=== PATIENT | female | born 1995 | race Caucasian/White ===

== ENCOUNTER 2016-08-29 07:50 | Observation (INO) | payer BC, MEDICAID ==
[2014-08-23 09:06] VITALS: O2SAT 98
[2016-08-29 08:34] VITALS: BP 114/76; PULSE 112; RESP 18; TEMP 98.2
== END 2016-08-29 12:00 | disposition home or self-care (01) ==
LOC: OB 07:50
PROVIDERS: ADMIT Emergency Medicine; ATTEND Emergency Medicine
DX: O47.1 False labor at or after 37 completed weeks of gestation (principal); Z3A.39 39 weeks gestation of pregnancy
CPT/HCPCS: 59025

== ENCOUNTER 2016-09-01 21:15 | Inpatient (IN) | payer BC, MEDICAID ==
[2016-09-01] MEDS ORDERED: OXYTOCIN 10000 MU/ML SOL IM PRN (21:44)
[2016-09-01] MEDS ORDERED: METHYLERGONOVINE MALEATE 0.2 MG/ML SOL IM PRN (21:44)
[2016-09-01] MEDS ORDERED: FENTANYL CITRATE 50 MCG/ML SOL IV PRN (21:44)
[2016-09-01] MEDS ORDERED: SODIUM CHLORIDE 0.9% FLUSH 10 ML SOL IV PRN (21:44)
[2016-09-01] MEDS ORDERED: MEPIVACAINE HCL 1% MPF 30 ML SOL INFIL PRN (21:44)
[2016-09-01] MEDS ORDERED: LACTATED RINGERS 1,000 ML IV PRN (21:44)
[2016-09-01] MEDS ORDERED: CARBOPROST 250 MCG/ML SOL IM PRN (21:44)
[2016-09-01] MEDS ORDERED: NALOXONE HYDROCHLORIDE 0.4 MG/ML SOL IV PRN (23:12)
[2016-09-01] MEDS ORDERED: NALBUPHINE HCL 20 MG/ML SOL IV PRN (23:12)
[2016-09-01] MEDS ORDERED: EPHEDRINE SULFATE 50 MG/ML SOL IV PRN (23:12)
[2016-09-01 23:17] LABS: BASOPHILS % (AUTO) 1 % (0-3); EOSINOPHILS % (AUTO) 1 % (0-9); HEMATOCRIT 35 % (35-47); MEAN CORPUSCULAR HGB CONC 33.7 gm/dl (32.0-36.0); MEAN CORPUSCULAR VOLUME 84 fL (81-99); MONOCYTES % (AUTO) 6.3 % (0-12); NEUTROPHILS % (AUTO) 67.7 % (37-80)
[2016-09-02] MEDS: LACTATED RINGERS 1,000 ML IV SCH ×4 (00:25→02:44)
[2016-09-02] MEDS ORDERED: LIDOCAINE HCL 2% MPF SOL ONE (00:33)
[2016-09-02] MEDS ORDERED: FENTANYL CITRATE 50 MCG/ML SOL ONE (00:34)
[2016-09-02] MEDS ORDERED: ROPIVACAINE HYDROCHLORIDE 5 MG/ML SOL ONE (00:34)
[2016-09-02] MEDS: SODIUM CHLORIDE 0.9% FLUSH 10 ML SOL IV SCH ×3 (00:44→14:00)
[2016-09-02] MEDS ORDERED: EPHEDRINE SULFATE 50 MG/ML SOL IV ONE (01:45)
[2016-09-02] MEDS: DIPHENHYDRAMINE 50 MG/ML SOL IV PRN ×2 (05:44→06:26)
[2016-09-02] MEDS ORDERED: FLEET ENEMA PR PRN (05:51)
[2016-09-02] MEDS ORDERED: BISACODYL 10 MG SUP PR PRN (05:51)
[2016-09-02] MEDS ORDERED: WITCH HAZEL 1 EA PAD TOP PRN (05:51)
[2016-09-02] MEDS ORDERED: TEMAZEPAM 15MG 15 MG CAP PO PRN (05:51)
[2016-09-02] MEDS ORDERED: METHYLERGONOVINE MALEATE 0.2 MG TAB PO PRN (05:51)
[2016-09-02] MEDS ORDERED: BENZOCAINE/MENTHOL 1 SPR TOP PRN (05:51)
[2016-09-02] MEDS: IBUPROFEN 600 MG TAB PO PRN ×2 (07:41→13:59)
[2016-09-02] MEDS: DOCUSATE SODIUM 100 MG SGL PO SCH ×2 (09:55→21:08)
[2016-09-02] MEDS: APAP/HYDROCODONE 325/5 TAB PO PRN (22:06)
[2016-09-03 05:51] VITALS: O2SAT 97
[2016-09-03] MEDS: IBUPROFEN 600 MG TAB PO PRN ×3 (06:08→19:00)
[2016-09-03] MEDS: SODIUM CHLORIDE 0.9% FLUSH 10 ML SOL IV SCH ×3 (06:13→17:24)
[2016-09-03] MEDS: DOCUSATE SODIUM 100 MG SGL PO SCH (09:12)
[2016-09-03] MEDS: APAP/HYDROCODONE 325/5 TAB PO PRN ×2 (09:12→15:50)
[2016-09-03 15:52] VITALS: BP 108/71; PULSE 77; RESP 20; TEMP 96.9
== END 2016-09-03 19:15 | disposition home or self-care (01) | DRG 560 ==
LOC: OB 21:15 → OBSVTOIN 21:15
PROVIDERS: ADMIT Emergency Medicine; ATTEND Emergency Medicine
PROC: 10907ZC Drainage of Amniotic Fluid, Therapeutic from Products of Conception, Via Natural or Artificial Opening (ICD-10-PCS; principal; 2016-09-02)
PROC: 10E0XZZ Delivery of Products of Conception, External Approach (ICD-10-PCS; 2016-09-02)
DX: O76 Abnormality in fetal heart rate and rhythm complicating labor and delivery (principal); Z37.0 Single live birth; Z3A.39 39 weeks gestation of pregnancy
CPT/HCPCS: 36415; 59025; 84112; 85018; 85025; J0670; J1200; J2590; J2795; J3010